=== PATIENT | female | born 1970 | race Caucasian/White ===

== ENCOUNTER → 2017-10-08 13:39 | Outpatient (CLI) | payer MEDICAID, SELFPAY ==
--- NOTE | 2017-10-08 13:45 | RAD_ITS ---
STUDY: X-RAY - RIGHT FOOT CLINICAL: Female, 47 years old. Pain and bruising overlying the third fourth and fifth metatarsals following injury. TECHNIQUE: 3 view(s) of the foot. COMPARISON: None. FINDINGS: Normal talus, calcaneus, and tarsal bones. Mild degenerative changes of the navicular cuboid joint. Normal metatarsi. Normal metatarsophalangeal joint of the great toe. Normal tibial and fibular sesamoid bones. Normal interphalangeal joint of the great toe. Normal phalanges of the great toe. Normal second through fifth metatarsophalangeal joints. Normal interphalangeal joints and phalanges of the lesser toes. The soft tissue structures are unremarkable. RAD/Foot min 3 Views IMPRESSION: No acute abnormality is seen. Electronically Signed: Angel Resendiz MD at 14:56 EST Tel [phone], Service support ,
== END ==
PROVIDERS: Family Provider Family Medicine; PCP Family Medicine; Visit Provider Family Medicine
DX: M79.674 Pain in right toe(s) (principal)
CPT/HCPCS: 73630

== ENCOUNTER → 2017-11-11 15:33 | Outpatient (CLI) | payer MEDICARE, MEDICAID, SELFPAY ==
--- NOTE | 2017-11-11 15:37 | RAD_ITS ---
STUDY: X-RAY RIGHT FOOT, FOURTH TOE REASON FOR EXAM: Female, 47 years old. Fracture TECHNIQUE: 4 view(s) of the toe were obtained. COMPARISON: October 08, 2017 FINDINGS: Normal visualized metatarsus. Normal metatarsophalangeal (M.T.P) joint. Normal interphalangeal joints. Healing fractures with callus is noted of the proximal phalanx of fourth toe. There is persistent soft tissue swelling of the fourth toe. RAD/Toe(s) Min 2 Views IMPRESSION: Healing fracture of the proximal phalanx of the fourth toe. Electronically Signed: Oscar Valdez DO at 21:58 EST Tel [phone], Service support ,
[2017-11-11 18:04] LABS: Absolute Lymphocyte Count 4.21 X10^3/ul (0.83-4.51); Absolute Neutrophil Count 4.2 X10^3/uL (2.0-7.7); Basophil# 0.06 X10^3/uL; Basophil% 0.6 % (0-1); Eosinophil# 0.17 X10^3/uL; Eosinophils% 1.8 % (0-5); Hematocrit 45.7 % (37-47); Hemoglobin 15.7 g/dl (12.0-15.0); Lymphocyte # 4.21 X10^3/ul (4.0); Lymphocyte % 44.6 % (19-41); Mean Corp Hgb Conc 34.4 g/gl (32-36); Mean Corpuscular Hgb 34.1 pg (27.0-32.0); Mean Corpuscular Volume 99.3 fL (81-99); Mean Platelet Vol. 10.8 fl (6.2-12.0); Monocyte# 0.74 X10^3/uL; Monocyte% 7.8 % (0-10); Neutrophil # 4.24 X10^3/uL (2.7-7.7); Neutrophil % 45.1 % (47-70); POSITIVE COUNT NO; POSITIVE DIFFERENTIAL NO; POSITIVE MORPHOLOGY NO; Platelet Count 326 K/mm3 (150-450); RBC Distribution Width CV 13.7 % (11.6-14.6); RBC Distribution Width SD 49.3 fl (35.1-43.9); White Blood Count 9.4 K/mm3 (4.4-11.0)
[2017-11-11 18:17] LABS: Erythrocyte Sedimentation Rate 8 mm/hr (0-20)
[2017-11-11 18:34] LABS: AST(SGOT) 18 U/L (15-37); Alanine Aminotransfer ALT/SGPT 23 U/L (13-56); Alkaline Phosphatase 76 U/L (45-117); Anion Gap 9 (5-15); BUN 12 mg/dL (7-18); BUN/Creat Ratio 13.6 RATIO (10-20); CRP < 2.90 mg/L (0.0-3.0); Calcium,Total 9.3 mg/dL (8.5-10.1); Chloride 106 mmol/L (98-107); Creatinine, Serum 0.88 mg/dL (0.55-1.02); EST Glomerular Filtration Rate 73 mL/min (>60); Est Glom Filt Rate - Afr Amer 89 mL/min (>60); Globulin 3.9 g/dL (2.2-4.2); Glucose 97 mg/dL (74-106); Potassium 3.6 mmol/L (3.5-5.1); Protein, Total 7.9 g/dL (6.4-8.2); Rheumatoid Factor < 10.0 IU/mL (<15); Sodium Level 143 mmol/L (136-145); Thyroid Stim Hormone (TSH) 1.52 uIU/mL (0.358-3.74)
[2017-11-12 08:51] LABS: Vitamin D,25 Hydroxy 46.2 ng/mL (29.95-100.01)
[2017-11-13 14:13] LABS: ANTINUCLEAR ANTIBODIES DIRECT Negative (Negative)
== END ==
PROVIDERS: Family Provider Family Medicine; PCP Family Medicine; Visit Provider Family Medicine
DX: S92.909A Unspecified fracture of unspecified foot, initial encounter for closed fracture (principal); E55.9 Vitamin D deficiency, unspecified; F41.1 Generalized anxiety disorder; M25.50 Pain in unspecified joint
CPT/HCPCS: 36415; 73660; 80053; 82306; 84443; 85025; 85652; 86038; 86140; 86431

== ENCOUNTER → 2018-02-17 16:22 | Outpatient (CLI) | payer MEDICARE, MEDICAID, SELFPAY ==
--- NOTE | 2018-02-17 16:31 | RAD_ITS ---
STUDY: X-RAY RIGHT FOOT, FOURTH TOE REASON FOR EXAM: Female, 47 years old. Follow-up of fourth toe fracture. TECHNIQUE: 3 view(s) of the toe were obtained. COMPARISON: November 11, 2017 FINDINGS: Normal visualized metatarsus. Normal metatarsophalangeal (M.T.P) joint. Normal interphalangeal joints. Healing fracture of the proximal phalanx of the fourth digit is again identified with minimal deformity. There is increased callus formation since the prior study. The soft tissue structures are unremarkable. RAD/Toe(s) Min 2 Views IMPRESSION: Healing fracture of the proximal phalanx of the fourth digit with no complications identified. Electronically Signed: Mark Murillo MD at 15:55 EDT , Service support ,
== END ==
PROVIDERS: Family Provider Family Medicine; PCP Family Medicine; Visit Provider Family Medicine
DX: S92.901A Unspecified fracture of right foot, initial encounter for closed fracture (principal); X58.XXXA Exposure to other specified factors, initial encounter; Y93.9 Activity, unspecified; Y92.9 Unspecified place or not applicable
CPT/HCPCS: 73660

== ENCOUNTER → 2019-10-11 12:41 | Outpatient (CLI) | payer MEDICARE, MEDICAID, SELFPAY ==
[2019-10-11 14:10] LABS: Erythrocyte Sedimentation Rate 23 mm/hr (0-20)
[2019-10-11 14:13] LABS: Absolute Lymphocyte Count 3.52 X10^3/uL (0.83-4.51); Absolute Neutrophil Count 9.7 X10^3/uL (2.0-7.7); Basophil# 0.06 X10^3/uL; Basophil% 0.4 % (0-1); Eosinophil# 0.12 X10^3/uL; Eosinophils% 0.9 % (0-5); Hematocrit 43.5 % (37-47); Hemoglobin 14.7 g/dL (12.0-15.0); Lymphocyte # 3.52 X10^3/ul (4.0); Mean Corp Hgb Conc 33.8 g/dL (32-36); Mean Corpuscular Volume 97.5 fL (81-99); Mean Platelet Vol. 10.6 fl (6.2-12.0); Monocyte# 0.65 X10^3/uL; Monocyte% 4.6 % (0-10); NRBC Flagged by Analyzer 0 % (0-5); Neutrophil # 9.68 X10^3/uL (2.7-7.7); Neutrophil % 68.9 % (47-70); Platelet Count 343 K/mm3 (150-450); RBC Distribution Width CV 12.5 % (11.6-14.6); RBC Distribution Width SD 45.1 fl (35.1-43.9); Red Blood Count 4.46 M/mm3 (4.2-5.4); White Blood Count 14.1 K/mm3 (4.4-11.0)
[2019-10-11 14:22] LABS: Vitamin D,25 Hydroxy 36.6 ng/mL (29.95-100.01)
[2019-10-11 14:27] LABS: Anion Gap 7 (5-15); BUN 11 mg/dL (7-18); BUN/Creat Ratio 14.2 RATIO (10-20); Calcium,Total 9.5 mg/dL (8.5-10.1); Chloride 110 mmol/L (98-107); Creatinine, Serum 0.78 mg/dL (0.55-1.02); EST Glomerular Filtration Rate 84 mL/min (>60); Est Glom Filt Rate - Afr Amer 102 mL/min (>60); Glucose 96 mg/dL (74-106); Potassium 3.8 mmol/L (3.5-5.1); Sodium Level 139 mmol/L (136-145); Thyroid Stim Hormone (TSH) 1.36 uIU/mL (0.358-3.74)
== END ==
PROVIDERS: PCP Family Medicine; Referring Provider Family Medicine; Visit Provider Family Medicine
DX: M79.7 Fibromyalgia (principal)
CPT/HCPCS: 36415; 80048; 82306; 84443; 85025; 85652

== ENCOUNTER → 2021-01-18 11:14 | Outpatient (CLI) | payer MEDICARE, MEDICAID, SELFPAY ==
--- NOTE | 2021-01-18 11:18 | RAD_ITS ---
STUDY: X-RAY CHEST REASON FOR EXAM: Female, 50 years old. Bronchitis. TECHNIQUE: PA and lateral views of the chest. COMPARISON: None. FINDINGS: The lungs are well-expanded. There is density in the right cardiophrenic angle suggesting middle lobe collapse. There is no demonstrated pleural abnormality. Normal size heart. Normal mediastinum and mark. Normal visualized pulmonary arteries. Normal visualized aortic arch and descending thoracic aorta. Normal visualized thoracic spine. Normal visualized ribs, clavicles, and shoulders. There is no demonstrated abnormality of the visualized soft tissue structures of the upper abdomen. RAD/Chest PA and Lateral IMPRESSION: Question right middle lobe collapse. Electronically Signed: Ward Licea DO at 21:54 EDT Tel [phone], Service support ,
== END ==
PROVIDERS: PCP Family Medicine; Referring Provider Family Medicine; Visit Provider Family Medicine
DX: J20.9 Acute bronchitis, unspecified (principal)
CPT/HCPCS: 71046

== ENCOUNTER → 2021-02-01 11:12 | Outpatient (CLI) | payer MEDICARE, MEDICAID, SELFPAY ==
--- NOTE | 2021-02-01 11:15 | RAD_ITS ---
STUDY: X-RAY CHEST REASON FOR EXAM: Female, 50 years old. Bronchitis TECHNIQUE: PA and lateral views of the chest. COMPARISON: Comparison is made with prior chest radiograph dated 01/18/2021. FINDINGS: Stable density seen in the right cardiophrenic angle. This may represent area of scarring or infiltration. Correlation with the a CT scan is recommended. There is no demonstrated pleural abnormality. Normal size heart. Normal mediastinum and mark. Normal visualized pulmonary arteries. Normal visualized aortic arch and descending thoracic aorta. Normal visualized thoracic spine. Normal visualized ribs, clavicles, and shoulders. There is no demonstrated abnormality of the visualized soft tissue structures of the upper abdomen. RAD/Chest PA and Lateral IMPRESSION: Stable examination with a questionable infiltration and/or atelectasis in the right middle lobe. Correlation with a CT scan of the thorax is recommended. Electronically Signed: Angel Resendiz MD at 14:47 EDT , Service support ,
[2021-02-01 15:20] LABS: Absolute Lymphocyte Count 3.68 X10^3/uL (0.83-4.51); Absolute Neutrophil Count 7.5 X10^3/uL (2.0-7.7); Basophil# 0.06 X10^3/uL; Basophil% 0.5 % (0-1); Eosinophil# 0.16 X10^3/uL; Eosinophils% 1.3 % (0-5); Hemoglobin 13.4 g/dL (12.0-15.0); Lymphocyte # 3.68 X10^3/ul (0.83-4.51); Lymphocyte % 30.2 % (19-41); Mean Corp Hgb Conc 31.9 g/dL (32-36); Mean Corpuscular Hgb 32.4 pg (27.0-32.0); Mean Corpuscular Volume 101.4 fL (81-99); Mean Platelet Vol. 10.7 fl (6.2-12.0); Monocyte# 0.74 X10^3/uL; Monocyte% 6.1 % (0-10); NRBC Flagged by Analyzer 0 % (0-5); Neutrophil # 7.51 X10^3/uL (2.7-7.7); Neutrophil % 61.7 % (47-70); Platelet Count 342 K/mm3 (150-450); RBC Distribution Width CV 13.2 % (11.6-14.6); RBC Distribution Width SD 49.4 fl (35.1-43.9); Red Blood Count 4.14 M/mm3 (4.2-5.4); White Blood Count 12.2 K/mm3 (4.4-11.0)
[2021-02-01 15:37] LABS: ALB/GLOB Ratio 1.1 RATIO (0.9-2.4); AST(SGOT) 18 U/L (15-37); Alanine Aminotransfer ALT/SGPT 21 U/L (13-56); Albumin, Serum 3.7 g/dL (3.2-5.0); Alkaline Phosphatase 63 U/L (45-117); Anion Gap 5 (5-15); BUN 9 mg/dL (7-18); BUN/Creat Ratio 10.6 RATIO (10-20); Calcium,Total 9.3 mg/dL (8.5-10.1); Chloride 113 mmol/L (98-107); Creatinine, Serum 0.85 mg/dL (0.55-1.02); EST Glomerular Filtration Rate 75 mL/min (>60); Est Glom Filt Rate - Afr Amer 91 mL/min (>60); Globulin 3.5 g/dL (2.2-4.2); Glucose 84 mg/dL (74-106); Potassium 3.7 mmol/L (3.5-5.1); Protein, Total 7.2 g/dL (6.4-8.2); Sodium Level 140 mmol/L (136-145)
== END ==
PROVIDERS: PCP Family Medicine; Referring Provider Family Medicine; Visit Provider Family Medicine
DX: R07.9 Chest pain, unspecified (principal); J20.9 Acute bronchitis, unspecified
CPT/HCPCS: 36415; 71046; 80053; 85025

== ENCOUNTER → 2021-02-08 13:49 | Outpatient (CLI) | payer MEDICARE, MEDICAID, SELFPAY ==
--- NOTE | 2021-02-08 13:50 | CT_ITS ---
STUDY: CT CHEST WITHOUT CONTRAST REASON FOR EXAM: Female, 50 years old. Chest Pain, abnormal findings on Radiology Exam. Possible right middle lobe collapse. RADIATION DOSAGE (If Supplied By Facility): CTDIvol = ( 6.09 ) mGy, DLP = ( 220.81 ) mGycm TECHNIQUE: Transaxial imaging was performed without the administration of intravenous contrast material. Multiplanar coronal and sagittal images were reformatted. Individualized dose optimization techniques were used for this CT. COMPARISON: None. FINDINGS: Hyperinflation. Diffuse emphysematous changes with the bullous formation in the upper lobes more prominent in the right upper lobe. There is evidence of a volume loss with air bronchograms in the anterior medial aspect of the right middle lobe. This may be related to postobstructive pneumonitis. Radiographic follow-up is recommended. Normal heart and pericardium. Normal mediastinum. Normal hilar regions. Normal unenhanced pulmonary arteries. There is atherosclerotic calcification of the aortic arch. There are mild degenerative changes of the thoracic spine. Small hiatal hernia. CT/Chest without Contrast IMPRESSION: Diffuse emphysematous changes with bullous formation more prominent in the right upper lobe. Mild loss along the anterior medial aspect of the right middle lobe with air bronchograms. Radiographic follow-up is recommended. Electronically Signed: Angel Resendiz MD at 15:36 EDT , Service support ,
== END ==
PROVIDERS: PCP Family Medicine; Referring Provider Family Medicine; Visit Provider Family Medicine
DX: R07.9 Chest pain, unspecified (principal)
CPT/HCPCS: 71250

== ENCOUNTER → 2021-02-28 10:17 | Outpatient (CLI) | payer MEDICARE, MEDICAID, SELFPAY ==
--- NOTE | 2021-02-28 | SPU_PTH ---
PATIENT: HUNG ORTEGA LOC: [facility] U#:[id number] AGE/SX: 55/F ROOM: RE02/28/[address]: Dr. Manuel Helton MD : 1970 BED: DIS: SPEC #: [id number] RECD: 02/28/21 13:49 STATUS: MERCEDES QURESHI #: [id number] KEVIN: 02/28/21 00:[address]: Manuel Helton DEPT: CYTOLOGY RECD BY: Ravi Moscoso ENTERED: 02/28/21 13:50 SP TYPE: Sputum Cy OTHR DR: Dr. Keven Bryson MD Tissues: Sputum Procedures: Pap Stain (control) Special Stain Group II Special Stain Group I Surgery Specimen Level IV AFB Stain (control) Cytospin Fluid HEADER OPERATION: Not noted PRE-OP DIAGNOSIS: Cough TISSUE SUBMITTED: Sputum for cytology DIAGNOSIS CYTOLOGY Sputum for cytology (smears, cytospin and block): Negative for malignant cells. Acute inflammation. AM:claudia 03/01/2021 COMMENT Only rare eosinophils are present. Clinical correlation is suggested. CYTOLOGY STUDY Slides are reviewed. CYTOLOGY GROSS Received is <1 ml of thick cloudy fluid labeled with the patient's name and and designated per the requisition as sputum. Submitted for cytology preparation including cell block. / claudia 02/28/2021 TC:2 CPT: 55040, 87280
[2021-02-28 12:26] LABS: Absolute Neutrophil Count 7.3 X10^3/uL (2.0-7.7); Basophil# 0.04 X10^3/uL; Basophil% 0.3 % (0-1); Eosinophil# 0.12 X10^3/uL; Hematocrit 42.7 % (37-47); Hemoglobin 14.1 g/dL (12.0-15.0); Lymphocyte % 28.8 % (19-41); Mean Corpuscular Hgb 32.6 pg (27.0-32.0); Mean Corpuscular Volume 98.8 fL (81-99); Mean Platelet Vol. 10.5 fl (6.2-12.0); Monocyte# 0.62 X10^3/uL; Monocyte% 5.4 % (0-10); NRBC Flagged by Analyzer 0 % (0-5); Neutrophil # 7.32 X10^3/uL (2.7-7.7); Neutrophil % 64.2 % (47-70); Platelet Count 373 K/mm3 (150-450); RBC Distribution Width CV 13.3 % (11.6-14.6); RBC Distribution Width SD 48.3 fl (35.1-43.9); Red Blood Count 4.32 M/mm3 (4.2-5.4); White Blood Count 11.4 K/mm3 (4.4-11.0)
[2021-02-28 12:54] LABS: AST(SGOT) 11 U/L (15-37); Alanine Aminotransfer ALT/SGPT 17 U/L (13-56); Albumin, Serum 3.6 g/dL (3.2-5.0); Alkaline Phosphatase 78 U/L (45-117); Anion Gap 6 (5-15); BUN 10 mg/dL (7-18); BUN/Creat Ratio 13.3 RATIO (10-20); CRP < 2.90 mg/L (0.0-3.0); Calcium,Total 9.2 mg/dL (8.5-10.1); Chloride 110 mmol/L (98-107); Creatinine, Serum 0.75 mg/dL (0.55-1.02); EST Glomerular Filtration Rate 87 mL/min (>60); Est Glom Filt Rate - Afr Amer 105 mL/min (>60); Globulin 3.7 g/dL (2.2-4.2); Glucose 95 mg/dL (74-106); LDH 146 U/L (84-246); Potassium 3.8 mmol/L (3.5-5.1); Protein, Total 7.3 g/dL (6.4-8.2); Sodium Level 140 mmol/L (136-145)
== END ==
PROVIDERS: PCP Family Medicine; Referring Provider Family Medicine; Visit Provider Family Medicine
DX: R05 Cough (principal)
CPT/HCPCS: 36415; 80053; 83615; 85025; 86140; 87015; 87070; 87101; 87107; 87116; 87205; 87206; 88108; 88305; 88312; 88313

== ENCOUNTER → 2021-03-21 12:52 | Outpatient (CLI) | payer MEDICARE, MEDICAID, SELFPAY ==
--- NOTE | 2021-03-21 13:41 | CT_ITS ---
STUDY: CT CHEST WITH CONTRAST REASON FOR EXAM: Female, [address] OF CHEST RADIATION DOSAGE (If Supplied By Facility): CTDIvol = ( 9.84 ) mGy, DLP = ( 359.30 ) mGycm TECHNIQUE: Transaxial imaging was performed following intravenous administration of IV 100mL Isovue-300. Multiplanar coronal and sagittal images were reformatted. Individualized dose optimization techniques were used for this CT. COMPARISON: Comparison is made with prior examination dated 02/08/2021. FINDINGS: Once again, there is evidence of emphysematous changes with bullous formation worse in the upper lobes. Stable mild loss with air bronchograms in the medial aspect of the right middle lobe suggestive of a atelectasis. This is unchanged. Stable elevation of the anterior medial aspect of the right hemidiaphragm. Normal heart and pericardium. Normal mediastinum. Normal hilar regions. Normal enhanced pulmonary arteries. There is atherosclerotic calcification of the aortic arch with tortuosity and elongation of the aortic arch and descending thoracic aorta. There are multi-level degenerative changes of the thoracic spine. Small hiatal hernia. CT/Chest WITH Contrast IMPRESSION: Stable examination. Electronically Signed: Angel Resendiz MD at 14:52 EDT , Service support ,
--- NOTE | 2021-03-22 10:14 | PFT_ITS ---
INTRODUCTION: The patient is a 51-year-old female that presents for pulmonary function studies secondary to a diagnosis of abnormal chest CT. Respiratory therapy reports good patient effort. Bronchodilators were used during testing. INTERPRETATION: Forced expiration spirometry demonstrates no evidence of a large airways obstructive ventilatory defect. There was no significant response to aerosolized bronchodilators. Spirograms are of suboptimal quality and terminate prior to 6 seconds, likely underestimating FVC. Body plethysmography was performed and reveals lung volumes to be within normal limits. Diffusing capacity by single breath CO is reduced to 67% of predicted. IMPRESSION: Isolated reduction in diffusing capacity, which could be related to an underly ing pulmonary vascular disorder such as pulmonary hypertension.
== END ==
PROVIDERS: PCP Family Medicine; Referring Provider Family Medicine; Visit Provider Family Medicine
DX: J43.9 Emphysema, unspecified (principal); R93.89 Abnormal findings on diagnostic imaging of other specified body structures
CPT/HCPCS: 71260; 94060; 94726; 94729; Q9967

== ENCOUNTER → 2021-04-13 12:57 | Outpatient (CLI) | payer MEDICARE, MEDICAID, SELFPAY ==
--- NOTE | 2021-04-13 13:04 | ECHOD_ITS ---
Reason For Study: Emphysema Procedure This was a 2D Doppler, Color Flow transthoracic echocardiogram. The exam was of adequate technical quality. Exam performed in department. Left Ventricle Normal LV size. Left ventricular systolic function is normal. The estimated ejection fraction is 65 %. No evidence for diastolic dysfunction. No regional wall motion abnormalities noted. Right Ventricle Normal RV size. Normal systolic function. Atria Normal left atrium. Normal right atrium. No doppler evidence for ASD. Mitral Valve There is no mitral annular calcification. Normal mitral valve. Mild (1+) mitral valve insufficiency. Tricuspid Valve Normal tricuspid valve. Trivial tricuspid valve insufficiency. Right ventricular systolic pressure estimated to be 26 mmHg. Aortic Valve Trisinus/trileaflet aortic valve. Normal aortic valve. Pulmonic Valve The pulmonic valve is not well visualized. Trivial pulmonic valve insufficiency. Great Vessels The aortic root is not well visualized. Pericardium/Pleural No pericardial effusion. MMode/2D Measurements & Calculations LVIDd: 3.3 cm IVSd: 1.1 cm LA dimension: 3.3 cm LVIDs: 2.5 cm LVPWd: 1.2 cm FS: 25.7 % LAV(MOD-bp): 32.8 ml LA A4 area: 12.7 cm2 RA A4 area: 10.3 cm2 LAV(MOD-bp) Indexed: 18.2 ml/m2 LAV(MOD-sp2): 37.2 ml LAV(MOD-sp4): 26.3 ml Time Measurements MV dec time: 0.20 sec Doppler Measurements & Calculations MV E max brandon: 109.5 cm/sec Lat Peak E' Brandon: 9.8 cm/sec Med Peak E' Brandon: 12.6 cm/sec MV A max brandon: 77.1 cm/sec E/E' lat: 11.2 E/E' med: 8.7 MV E/A: 1.4 MV V2 max: 125.2 cm/sec MV P1/2t max brandon: 125.2 cm/sec Ao V2 max: 126.7 cm/sec MV max P.3 mmHg MV P1/2t: 66.6 msec Ao max P.4 mmHg MV V2 mean: 66.8 cm/sec MV dec slope: 550.4 cm/sec2 MV mean P.1 mmHg MVA(P1/2t): 3.3 cm2 MV V2 VTI: 35.2 cm LV V1 max: 120.9 cm/sec PA V2 max: 102.1 cm/sec TR max brandon: 241.1 cm/sec LV V1 max P.8 mmHg TR max P.3 mmHg ECHO/Echo Complete Interpretation Summary Left ventricular systolic function is normal. The estimated ejection fraction is 65 %. Mild (1+) mitral valve insufficiency. Trivial tricuspid valve insufficiency. Trivial pulmonic valve insufficiency. Right ventricular systolic pressure estimated to be 26 mmHg. No evidence for diastolic dysfunction. Ordering Physician: Anurag Bryson Referring Physician: Anurag Bryson Performed By: Parth Gonsalez RCS
== END ==
PROVIDERS: PCP Family Medicine; Referring Provider Family Medicine; Visit Provider Family Medicine
DX: J43.9 Emphysema, unspecified (principal); I34.0 Nonrheumatic mitral (valve) insufficiency
CPT/HCPCS: 93306

== ENCOUNTER → 2021-05-30 12:21 | Outpatient (CLI) | payer MEDICARE, MEDICAID, SELFPAY ==
[2021-04-19 09:11] VITALS: BMI 27.6
[2021-05-30 12:30] VITALS: PULSE 100; PULSE 105; PULSE 76; PULSE 84; PULSE 94; PULSE 97; PULSE 98; O2SAT 92; O2SAT 93; O2SAT 94; O2SAT 95
--- NOTE | 2021-06-01 10:49 | PCM.PSN.6M ---
PSN 6 Minute Walk Test 6 Minute Walk Test 6 Minute Walk Test: 6 Minute Walk Test PSN:6-Minute Walk Test Start: 05/30/21 12:44 Freq: Status: Active Protocol: RESP.6MINW Document 05/30/21 12:30 CASSIE (Rec: 05/30/21 12:47 JLA [id number]) 6 Minute Walk Test Date Performed 05/30/21 Time Performed 12:30 Height 5 ft 5 in Weight: 72.575 kg Weight in Pounds 160.[address]: Martínez Hernandez Assistive device used: None Pre-test Oxygen Delivery Method Room Air Pulse Ox (%) 93 Pulse Rate (60-100 beats/min) 76 1st minute Oxygen Delivery Method Room Air Pulse Ox (%) 94 Pulse Rate (60-100 beats/min) 100 2nd minute Oxygen Delivery Method Room Air Pulse Ox (%) 92 Pulse Rate (60-100 beats/min) 94 3rd minute Oxygen Delivery Method Room Air Pulse Ox (%) 93 Pulse Rate (60-100 beats/min) 98 4th minute Oxygen Delivery Method Room Air Pulse Ox (%) 93 Pulse Rate (60-100 beats/min) 105 H 5th minute Oxygen Delivery Method Room Air Pulse Ox (%) 94 Pulse Rate (60-100 beats/min) 105 H 6th minute Oxygen Delivery Method Room Air Pulse Ox (%) 94 Pulse Rate (60-100 beats/min) 97 Dyspnea Huseyin Scale (0-10) 1 Exertion Huseyin Scale (6-20) 11 Post-test Oxygen Delivery Method Room Air Pulse Ox (%) 95 Pulse Rate (60-100 beats/min) 84 Full Laps Walked 19 Partial Lap, Number of Tiles Walked 30 Total Distance Walked (ft) 1151 Interpretation Interpretation: The patient ambulated 1151 feet over the course of 6 minutes beginning on room air without assistive devices or breaks. Pretesting oxygen saturation was noted to be 93% on room air. With ambulation, the cordelia oxygen saturation was 92%. There was no significant exertional oxygen desaturation. Recommendations Recommendations: There is no indication for the use of supplemental oxygen at this time.
== END ==
PROVIDERS: PCP Family Medicine; Referring Provider Internal Medicine Critical Care Medicine; Visit Provider Internal Medicine Critical Care Medicine
DX: J44.9 Chronic obstructive pulmonary disease, unspecified (principal)
CPT/HCPCS: 94618

== ENCOUNTER 2021-10-31 10:35 | Outpatient (CLI) | payer MEDICARE, MEDICAID, SELFPAY ==
--- NOTE | 2021-10-31 10:40 | RAD_ITS ---
STUDY: X-RAY CHEST REASON FOR EXAM: Female, 51 years old. DIAPHRAGMATIC HERNIA TECHNIQUE: Single AP portable view of the chest. COMPARISON: Comparison is made with prior study dated 02/01/2021. FINDINGS: Stable elevation of the anterior aspect of the right hemidiaphragm. Stable increased linear markings at the lung bases suggestive of linear scarring. Decreased bronchovascular markings in the right lung suggestive of a T of this change. There is no demonstrated pleural abnormality. Normal size heart. Normal mediastinum and mark. Normal visualized pulmonary arteries. Normal visualized aortic arch and descending thoracic aorta. Normal visualized thoracic spine. Normal visualized ribs, clavicles, and shoulders. There is no demonstrated abnormality of the visualized soft tissue structures of the upper abdomen. RAD/Chest PA and Lateral IMPRESSION: Stable examination. Electronically Signed: Angel Resendiz MD at 15:22 EST ,
[2021-10-31 12:22] LABS: Absolute Lymphocyte Count 3.38 X10^3/uL (0.83-4.51); Absolute Neutrophil Count 6.3 X10^3/uL (2.0-7.7); Basophil# 0.06 X10^3/uL; Basophil% 0.6 % (0-1); Eosinophil# 0.15 X10^3/uL; Eosinophils% 1.4 % (0-5); Hematocrit 42.2 % (37-47); Lymphocyte # 3.38 X10^3/ul (0.83-4.51); Lymphocyte % 32.1 % (19-41); Mean Corp Hgb Conc 33.2 g/dL (32-36); Mean Corpuscular Hgb 32.9 pg (27.0-32.0); Mean Corpuscular Volume 99.3 fL (81-99); Mean Platelet Vol. 10.4 fl (6.2-12.0); Monocyte# 0.59 X10^3/uL; Monocyte% 5.6 % (0-10); NRBC Flagged by Analyzer 0 % (0-5); Neutrophil # 6.32 X10^3/uL (2.7-7.7); Neutrophil % 59.9 % (47-70); Platelet Count 375 K/mm3 (150-450); RBC Distribution Width CV 12.9 % (11.6-14.6); RBC Distribution Width SD 47.2 fl (35.1-43.9); Red Blood Count 4.25 M/mm3 (4.2-5.4); White Blood Count 10.5 K/mm3 (4.4-11.0)
[2021-10-31 12:41] LABS: AST(SGOT) 19 U/L (15-37); Alanine Aminotransfer ALT/SGPT 21 U/L (13-56); Albumin, Serum 3.8 g/dL (3.2-5.0); Alkaline Phosphatase 76 U/L (45-117); Anion Gap 5 (5-15); BUN 9 mg/dL (7-18); BUN/Creat Ratio 10.6 RATIO (10-20); Calcium,Total 9.6 mg/dL (8.5-10.1); Chloride 111 mmol/L (98-107); Creatinine, Serum 0.85 mg/dL (0.55-1.02); EST Glomerular Filtration Rate 75 mL/min (>60); Est Glom Filt Rate - Afr Amer 91 mL/min (>60); Globulin 3.7 g/dL (2.2-4.2); Glucose 88 mg/dL (74-106); Potassium 4.2 mmol/L (3.5-5.1); Protein, Total 7.5 g/dL (6.4-8.2); Sodium Level 141 mmol/L (136-145)
== END 2021-10-31 23:59 | disposition home or self-care (01) ==
LOC: MTLAB 10:37
PROVIDERS: PCP Family Medicine; Referring Provider Family Medicine; Visit Provider Family Medicine
DX: K44.9 Diaphragmatic hernia without obstruction or gangrene (principal)
CPT/HCPCS: 36415; 71046; 80053; 85025

== ENCOUNTER → 2022-04-24 | Outpatient (CLI) | payer MEDICARE, MEDICAID, SELFPAY ==
--- NOTE | 2022-04-24 13:22 | BI_ITS ---
MAMMOGRAPHY - BILATERAL SCREENING 3-D TOMOSYNTHESIS REASON FOR EXAM: Female, 52 years old. SCREENING PERTINENT HISTORY: No significant family history. TECHNIQUE: 2-D mammograms and 3-D Tomosynthesis of the breast (s) were performed. CAD was performed. COMPARISON: None. FINDINGS: The breast composition is composed of scattered fibroglandular density. Scattered benign calcifications are seen. No dense spiculated masses or suspicious microcalcifications are identified. No architectural distortion is identified. There is no skin thickening or retraction. There has been no significant change since the prior study. BI/SCRN MAMM (CAD)W/JOY BILAT IMPRESSION: No mammographic signs of malignancy. Routine yearly mammograms recommended. ASSESSMENT CATEGORY: BIRADS Category 1: Negative. A letter regarding these results will be sent to the patient by the facility within 30 days. FOLLOW UP RECOMMENDATION: Yearly follow up mammogram recommended. (A) Approximately 10% of breast cancers are not detected by mammography. A normal mammogram should not delay biopsy of a clinically suspicious abnormality. Electronically Signed: Shaun Coats MD at 14:08 EDT ,
== END | disposition home or self-care (01) ==
LOC: OPBI 13:21
PROVIDERS: PCP Family Medicine; Visit Provider Family Medicine
DX: Z12.31 Encounter for screening mammogram for malignant neoplasm of breast (principal)
CPT/HCPCS: 77063; 77067

== ENCOUNTER → 2022-09-11 | Outpatient (CLI) | payer MEDICARE, MEDICAID, SELFPAY ==
[2022-09-11 17:57] LABS: Absolute Lymphocyte Count 3.32 X10^3/uL (0.83-4.51); Absolute Neutrophil Count 4.6 X10^3/uL (2.0-7.7); Basophil# 0.06 X10^3/uL; Basophil% 0.7 % (0-1); Eosinophil# 0.29 X10^3/uL; Eosinophils% 3.3 % (0-5); Hematocrit 40.3 % (37-47); Hemoglobin 13.2 g/dL (12.0-15.0); Lymphocyte # 3.32 X10^3/ul (0.83-4.51); Lymphocyte % 37.4 % (19-41); Mean Corp Hgb Conc 32.8 g/dL (32-36); Mean Corpuscular Volume 100.8 fL (81-99); Mean Platelet Vol. 10.4 fl (6.2-12.0); Monocyte# 0.62 X10^3/uL; NRBC Flagged by Analyzer 0 % (0-5); Neutrophil # 4.57 X10^3/uL (2.7-7.7); Neutrophil % 51.4 % (47-70); Platelet Count 350 K/mm3 (150-450); RBC Distribution Width CV 12.9 % (11.6-14.6); RBC Distribution Width SD 47.9 fl (35.1-43.9); White Blood Count 8.9 K/mm3 (4.4-11.0)
[2022-09-11 18:17] LABS: Erythrocyte Sedimentation Rate 16 mm/hr (0-30); Monocyte 8.9 % (0-10)
[2022-09-11 18:50] LABS: Vitamin D,25 Hydroxy 53.6 ng/mL
[2022-09-11 19:05] LABS: ALB/GLOB Ratio 1.3 RATIO (0.9-2.4); AST(SGOT) 14 U/L (15-37); Alanine Aminotransfer ALT/SGPT 25 U/L (13-56); Alkaline Phosphatase 64 U/L (45-117); Anion Gap 8 (5-15); BUN 18 mg/dL (7-18); BUN/Creat Ratio 18.8 RATIO (10-20); Calcium,Total 9.2 mg/dL (8.5-10.1); Chloride 110 mmol/L (98-107); Creatinine, Serum 0.96 mg/dL (0.55-1.02); EST Glomerular Filtration Rate 66 mL/min (>60); Est Glom Filt Rate - Afr Amer 79 mL/min (>60); Glucose 88 mg/dL (74-106); Potassium 4.2 mmol/L (3.5-5.1); Sodium Level 141 mmol/L (136-145); Thyroid Stim Hormone (TSH) 1.85 uIU/mL (0.358-3.74)
== END | disposition home or self-care (01) ==
LOC: MFPLAB 15:17
PROVIDERS: PCP Family Medicine; Referring Provider Family Medicine; Visit Provider Family Medicine
DX: M79.7 Fibromyalgia (principal); E55.9 Vitamin D deficiency, unspecified
CPT/HCPCS: 36415; 80053; 82306; 84443; 85025; 85652